=== PATIENT | female | born 1975 | race Caucasian/White ===

== ENCOUNTER → 2022-11-24 13:08 | Outpatient (CLI) | payer BC, SELFPAY ==
[2022-11-24 14:17] LABS: Basophils # 0.1 K/mm3 (0-0.2); Basophils % 1.4 % (0.1-2.0); Eosinophils # 0.6 K/mm3 (0.0-0.4); Eosinophils % 7.2 % (0.1-12.0); Hematocrit 47.4 % (37.0-47.0); Hemoglobin 15.6 g/dL (12.2-16.2); Lymphocytes # 2.7 K/mm3 (0.7-4.5); Lymphocytes % 33.3 % (10-50); Mean Corpuscular Hemoglobin 30.5 pg (27.0-31.2); Mean Corpuscular Volume 92.4 fl (81-99); Mean Platelet Volume 8.9 fl (7.4-10.4); Monocytes # 0.4 K/mm3 (0.1-1.0); Monocytes % 5.1 % (1.7-9.3); Neutrophils # 4.3 K/mm3 (1.8-7.8); Platelet Count 276 K/mm3 (142-424); Red Blood Count 5.13 M/mm3 (4.20-5.40); Red Cell Distribution Width 14.1 % (11.5-17.5); White Blood Count 8.1 K/mm3 (4.8-10.8)
[2022-11-24 14:34] LABS: Alanine Aminotransferase 17 U/L (12-78); Albumin Level 4.7 g/dl (3.5-5.0); Alkaline Phosphatase 78 U/L (38-126); Anion Gap 9.4 mEq/L (5-15); Aspartate Amino Transferase 21 U/L (14-36); Bilirubin,Indirect 0.3 mg/dL (0.0-0.9); Bilirubin,Total 0.3 mg/dl (0.2-1.3); Bilirubin,Unconjugated 0.4 mg/dL (0.0-1.1); Blood Urea Nitrogen 5 mg/dl (7-17); Calcium 9.8 mg/dl (8.4-10.2); Carbon Dioxide 29 mmol/L (22.0-30.0); Chloride 104 mmol/L (98-107); Chol/HDL Ratio 5.5 (1-3.5); Cholesterol 160 mg/dl (140-200); Estimated Glomerular Filt Rate 90 ml/min (>60); GFR (African American) 109 ML/MIN (>60); Glucose 93 mg/dl (74-100); HDL Cholesterol 29 mg/dl (40-60); Magnesium 2.2 mg/dl (1.6-2.3); Potassium 4.4 mmoL/L (3.5-5.1); Sodium 138 mmol/L (136-145); Total Protein,Serum 7.3 g/dl (6.3-8.2); Triglycerides 209 mg/dl (30-150); VLDL Cholesterol 42 mg/dL (0-40)
[2022-11-24 14:45] LABS: Direct LDL Cholesterol 95.45 mg/dL (100-129)
[2022-11-24 14:50] LABS: Free T4 (Free Thyroxine) 1.07 ng/dl (0.78-2.19)
[2022-11-24 15:05] LABS: Thyroid Stimulating Hormone 0.87 uIU/mL (0.465-4.68)
== END ==
LOC: LAB 13:10
PROVIDERS: PCP Family Medicine; Visit Provider Physician Assistant
DX: R00.0 Tachycardia, unspecified (principal); I10 Essential (primary) hypertension; R53.83 Other fatigue; R09.02 Hypoxemia; Z72.0 Tobacco use; Z80.1 Family history of malignant neoplasm of trachea, bronchus and lung
CPT/HCPCS: 36415; 80048; 80061; 80076; 83735; 84439; 84443; 85025; 93225; 93226

== ENCOUNTER → 2022-12-15 10:07 | Outpatient (CLI) | payer BC, SELFPAY ==
--- NOTE | 2022-12-15 10:07 | CT_ITS ---
FINAL REPORT TECHNIQUE: The patient was injected with IV contrast. Axial images were obtained through the chest in a PE protocol. 3-D reconstruction images were also performed. Individualized dose reduction techniques using automated exposure control or adjustment of the MA and/or KV according to patient's size were employed. CLINICAL HISTORY: Hypoxemia, Tachycardia, soa FINDINGS: Mediastinal vasculature is adequately opacified. No pulmonary artery filling defects are identified to suggest PE. There is no aortic dissection. There is no axillary adenopathy. There is no hilar or mediastinal adenopathy. The heart size is normal. There is no pericardial or pleural effusion. There is consolidation and atelectasis in the right mid lung. Lung windows demonstrate mild ground-glass opacity in the right lung base which is nonspecific and possibly related to infectious pneumonitis. Limited images of the upper abdomen are unremarkable. IMPRESSION: No pulmonary embolus or dissection. Right midlung consolidation. Ground-glass opacities in the right lung base concerning for infectious pneumonitis. Reviewed, Interpreted and Dictated by Crispin Patterson MD Transcribed by Alyssa Becerra Authenticated and [facility]
== END ==
LOC: RAD 10:07
PROVIDERS: PCP Family Medicine; Visit Provider Physician Assistant
DX: R09.02 Hypoxemia (principal); R00.0 Tachycardia, unspecified; I10 Essential (primary) hypertension; Z80.1 Family history of malignant neoplasm of trachea, bronchus and lung
CPT/HCPCS: 71275; Q9967

== ENCOUNTER 2023-03-02 08:14 | Day surgery (SDC) | payer BC, SELFPAY ==
--- NOTE | 2023-02-27 10:11 | SUR.PREOP ---
Upon making preop phone call notified patient of scheduled procedure time and being NPO after midnight. Patient states that she can not go that long without eating. Asked patient of she would like to speak with Dr. Dong's office about scheduled procedure time and she states that she would. Attempted to transfer pt to Dr. Dong's office, no answer. Notified patient that I would recall his office and ask them to reach out to her. Upon finally reaching office staff notified them that she would like to receive a phone call regarding scheduled time. Was notified per office staff they had left her a message earlier in the day informing her to call them if she had any questions.
[2023-02-27 13:43] VITALS: BMI 23.1
[2023-03-02] VITALS (9 sets, daily range): BP systolic 92–136; BP diastolic 55–86; PULSE 69–95; RESP 14–18; TEMP -9.4–36.6; O2SAT 92–100
[2023-03-02 08:54] LABS: Basophils # 0.1 K/mm3 (0-0.2); Basophils % 0.8 % (0.1-2.0); Eosinophils # 0.4 K/mm3 (0.0-0.4); Eosinophils % 4.4 % (0.1-12.0); Hematocrit 45.6 % (37.0-47.0); Hemoglobin 15.4 g/dL (12.2-16.2); Lymphocytes # 2.2 K/mm3 (0.7-4.5); Lymphocytes % 26.2 % (10-50); Mean Corpuscular HGB Conc 33.7 g/dL (31.8-35.4); Mean Corpuscular Hemoglobin 30.8 pg (27.0-31.2); Mean Corpuscular Volume 91.1 fl (81-99); Mean Platelet Volume 8.7 fl (7.4-10.4); Monocytes # 0.4 K/mm3 (0.1-1.0); Monocytes % 4.4 % (1.7-9.3); Neutrophils # 5.3 K/mm3 (1.8-7.8); Neutrophils % 64.2 % (37.0-80.0); Platelet Count 244 K/mm3 (142-424); Red Cell Distribution Width 13.7 % (11.5-17.5); White Blood Count 8.3 K/mm3 (4.8-10.8)
[2023-03-02 09:02] LABS: Blood Urea Nitrogen 11 mg/dl (7-17); Calcium 9.8 mg/dl (8.4-10.2); Carbon Dioxide 28 mmol/L (22.0-30.0); Chloride 107 mmol/L (98-107); Creatinine Clearance Estimated 112 mL/min (50-200); Estimated Glomerular Filt Rate 107 ml/min (>60); GFR (African American) 130 ML/MIN (>60); Glucose 90 mg/dl (74-100); Sodium 141 mmol/L (136-145)
--- NOTE | 2023-03-02 09:10 | P.PNANES_ITS ---
[facility] Disclaimer: The information contained in this section may have been updated after the patient was seen, as this information can be updated by other users. Medical History Allergic rhinitis Chest pain Dyspnea on exertion Fatigue FH: lung cancer HTN (hypertension) Hypoxemia Recurrent pneumonia Smoking greater than 30 pack years SOB (shortness of breath) on exertion Tachycardia Tobacco use Surgical History History of cholecystectomy History of hysterectomy Family History Other Family history of COPD (chronic obstructive pulmonary disease) Family history of cancer Family history of myocardial infarction Social History (Updated 03/02/23 @ 08:55 by Luisana Pena RN) Smoking Status: Current every day smoker tobacco type: cigarettes packs per day: 1 years smoked: 30 alcohol intake: never substance use type: denies use current occupational status: employed Travel in the last 8 weeks: None [facility] Anesthesia Checklist Patient Identification Patient Identification: Verbal (Name & ) Structural Data Admitted From: Home Planned Operative Procedure/s: bronchoscopy Consent for Planned Operative Procedure(s) Verified: Yes NPO Status Verified Time NPO: 00:00 Additional verifications Anesthesia Reactions: No Hx Blood Transfusions: No Blood Transfusion Reaction: No Airway Assessment C-Spine Mobility Assessed: Yes TMJ Mobility Assessed: Yes Dentition: Good Dentition Neurological Assessment Level of Consciousness: Awake, Alert and Appropriate Anesthesia Plan Anesthesia Risk discussed: Yes Anesthesia Plan: Verified ASA Class: II Anesthesia Type: General
--- NOTE | 2023-03-02 09:27 | XR_ITS ---
FINAL REPORT CLINICAL HISTORY: h/o pneumonia COMPARISON: 03/02/2023 FINDINGS: A portable view of the chest was obtained. Cardiac and mediastinal silhouettes are within normal limits. The lungs are clear. There is no pleural effusion or pneumothorax. IMPRESSION: No acute process on this portable exam. Reviewed, Interpreted and Dictated by Savannah Sheth MD Transcribed by Kaci Montilla Authenticated and [facility]
--- NOTE | 2023-03-02 10:31 | XR_ITS ---
FINAL REPORT CLINICAL HISTORY: TRANS-BRONCHOSCOPY WITH BIOPSY- right middle lobe. Fluoro time: 2:12 FINDINGS: FLUOROSCOPY LESS THAN 1 HOUR HISTORY: Fluoroscopy guided injection. FINDINGS: Fluoroscopic guidance was provided for bronchoscopy. A single spot film was obtained. 2 minutes 12 seconds of fluoroscopy time were used. IMPRESSION: As above. Reviewed, Interpreted and Dictated by Savannah Sheth MD Transcribed by Anna Gomez Authenticated and . [facility]
--- NOTE | 2023-03-02 10:43 | P.PNANES_ITS ---
[facility] Anesthesia Record Part I Anesthesia Record I Intake, IV Amount: 1,000 Estimated blood loss (mL): 2 Urine output (mL): 0 Blood Pressure: 92/55 SaO2: 93 Pulse Rate: 95 Respiratory Rate: 15 Temperature: 15 F Patient is:: Drowsy and Oral/Nasal airway Stable to PACU at:: 10:44
--- NOTE | 2023-03-02 10:58 | XR_ITS ---
FINAL REPORT CLINICAL HISTORY: post bronch COMPARISON: Earlier same day FINDINGS: A portable view of the chest was obtained. Cardiac and mediastinal silhouettes are within normal limits. There is a new right base opacity. There is a pneumothorax with 1.4 cm of pleural separation. Right pleural effusion is noted. IMPRESSION: Pneumothorax with 1.4 cm pleural separation post bronchoscopy. Right pleural effusion and right base opacity. Reviewed, Interpreted and Dictated by Savannah Sheth MD Transcribed by Anna Gomez Authenticated and [facility]
--- NOTE | 2023-03-02 11:06 | EXP.BRONCH.N ---
Procedure: Date: 03/02/23 Patient Date of :: 1975 Procedure Performed:: Bronchoscopy with airway examination, bronchoalveolar lavage and transbronchial lung biopsy Indications:: Right middle lobe collapse Performing Provider:: Nick Dong MD Referring Provider:: Fidel Chen MD Sedation:: General anesthesia Procedure:: Bronchoscopy airway examination, bronchoalveolar lavage and transbronchial lung biopsy: A clean THEREPEAUTIC bronchoscopy was advanced through the ET tube and airways were examined up to subsegmental bronchi. Airways appeared grossly normal, no evidence of mucoid secretions, mucous plugging active bleeding/old blood clots noted. No evidence of endobronchial lesion/mucous making noted in the right middle lobe bronchi. Bronchoalveolar lavage was performed in the RIGHT MIDDLE LOBE with instillation of 60 cc normal saline with return of 30 cc back. BAL fluid was sent for cell count and differential along with bacterial fungal and AFB stain and cultures. Transbronchial biopsy was performed in the RIGHT MIDDLE LOBE with a total of 7 biopsies performed, 5 biopsy specimens were sent in formalin for cytopathologic examination. The other 2 biopsy samples, were sent one each in two separate normal saline specimen cups for bacterial fungal and AFB stain cultures. Special request was also made for the pathologist to evaluate for AFB and fungal organisms on the cytopathologic examination. Patient tolerated the procedure with no immediate acute complications. We will follow the patient in pulmonary clinic in 7 to 10 days. Findings:: Please see the procedure note Recommendations:: Postoperative bronchoscopy instructions. Follow in pulmonary clinic in 5 to 7 days Complications:: No acute immediate complication Estimated blood obtained (mL): 10
--- NOTE | 2023-03-02 12:21 | SUR.PREOP ---
Recieved call from Radiology stating patient shows a pneumothorax on post bronchoscopy CXR. Spoke with postop staff who state that patient has been discharged following Dr. Dong's review of CXR and permission to discharge. Attempted to call Dr. Langley's office to notify him of radiology report, no answer. Called Perico Harper who states she will send a message to Divya in Dr Dong's office requesting he follow up with Radiology.
[2023-03-03 07:23] VITALS: BP 123/79; PULSE 91; TEMP 36.6
--- NOTE | 2023-03-03 07:23 | EXP.ANES.II ---
[facility] Anesthesia Record Part II Anesthesia Record Part II Discharge Time: 11:14 Destination: Surgical Day Care (OP Surgery) PACU nurse assessment reviewed?: Yes Patient Condition:: Good Anesthesia Complications:: None Swallowing reflex intact?: Yes Cyanosis?: No Blood Pressure: 123/79 Pulse Rate: 91 Temperature: 97.9 F Mental Status: Alert & Oriented Pain level:: 0 Nausea and/or vomitting:: None Intake, IV Amount: 0
== END 2023-03-02 11:55 | disposition home or self-care (01) ==
PROVIDERS: PCP Family Medicine; Visit Provider Internal Medicine Pulmonary Disease
PROC: (CPT 31624; principal; 2023-03-02 10:00)
DX: R06.09 Other forms of dyspnea (principal); Z79.899 Other long term (current) drug therapy; F17.210 Nicotine dependence, cigarettes, uncomplicated; J18.9 Pneumonia, unspecified organism; J30.9 Allergic rhinitis, unspecified; I10 Essential (primary) hypertension; J93.83 Other pneumothorax
CPT/HCPCS: 31624; 31628; 71045; 76000; 80048; 85025; 87070; 87077; 87102; 87116; 87186; 87205; 87206; 89051; J2405

== ENCOUNTER → 2023-03-03 07:50 | Outpatient (CLI) | payer BC, SELFPAY ==
--- NOTE | 2023-03-03 07:58 | XR_ITS ---
FINAL REPORT CLINICAL HISTORY: SOB, post bronchoscopy COMPARISON: 03/02/2023 FINDINGS: PA and lateral views of the chest are obtained. There is a prior from 03/02/2023 that was used for comparison. The cardiac and mediastinal silhouettes are within normal limits. There is no pleural effusion or acute osseous abnormality. There has been interval increase in size in the right pneumothorax. The pleural separation measures 4.7 cm. There is a right middle lobe collapse. The left lung is clear. IMPRESSION: Interval increase in size in the right pneumothorax. Right middle lung collapse. These findings were communicated to the patient's nurse Cely at 9:05 AM on 03/03/2023. Reviewed, Interpreted and Dictated by Savannah Sheth MD Transcribed by Jessie Thakkar Authenticated and [facility]
== END ==
LOC: RAD 07:53
PROVIDERS: PCP Family Medicine; Visit Provider Internal Medicine Pulmonary Disease
DX: R06.02 Shortness of breath (principal)
CPT/HCPCS: 71046

== ENCOUNTER 2023-03-03 08:57 | Inpatient (IN) | payer BC, SELFPAY ==
[2023-03-03] VITALS (17 sets, daily range): BP systolic 128–163; BP diastolic 80–106; PULSE 59–86; RESP 16–20; TEMP 36.6–36.9; O2SAT 97–100; BMI 22.4; BMI 23.6
--- NOTE | 2023-03-03 09:06 | PC.NURSE ---
0904 report received from [facility], CXR RESULTS GIVEN TO DR. KAUR AT THIS TIME
--- NOTE | 2023-03-03 09:09 | HMH.EDGENADL ---
Discharge Plan Disposition Patient Disposition: Admitted As Inpatient Clinical Impressions Clinical Impression: Pneumothorax Qualifiers: Pneumothorax type: other pneumothorax Qualified Code(s): J93.83 - Other pneumothorax Discharge ED Provider: Lona Spangler Adult HPI General Chief complaint: Shortness of Breath/Dyspnea Stated complaint: Phys ref, post op 03/02 upper RT collarbone pain Time Seen by Provider: 03/03/23 09:00 History of Present Illness HPI narrative: This 47-year-old female with a history of hypertension presents to the emergency department with concerns of right-sided chest pain, and pneumothorax from outside provider. Patient had lung biopsy performed with pulmonology yesterday. At that time she had small previously no pneumothorax. Patient was having worsening right-sided chest pain and presented for repeat chest x-ray ordered by pulmonology. The cash applications specialist called the ED stating the patient would be arriving for evaluation and pneumothorax treatment. Dr. Dong stated he thought the pneumothorax was approximately 4 cm now and with the patient having symptomatic right-sided chest pain he wanted further evaluation and treatment. He indicated he would have the patient admitted after treatment. Patient states she otherwise would not be in the ER if they had not identified this expanding pneumothorax. No other positive review of systems at this time. Specifically, she denies hemoptysis, productive cough, left-sided chest pain, or dyspnea. Related Data Home Medications Medication Instructions Recorded Confirmed cyanocobalamin (vitamin B-12) 1,000 mcg PO DAILY Supplement 11/24/22 03/03/23 1,000 mcg tablet,extended release ergocalciferol (vitamin D2) 1,250 1,250 mcg PO WEEKLY Supplement 11/24/22 03/03/23 mcg (50,000 unit) capsule black cohosh root extract 40 mg 40 mg PO DAILY Supplement 02/04/23 03/03/23 capsule collagen,hydrolysate 500 mg-biotin 1 cap PO DAILY Supplement 02/04/23 03/03/23 800 mcg-ascorbic acid 50 mg capsule (Collagen 1500 Plus C) docusate sodium 100 mg capsule 100 mg PO BID Constipation 02/04/23 03/03/23 diltiazem HCl 180 mg 180 mg PO BID Blood Pressure 02/27/23 03/03/23 capsule,extended release 24 hr hydrochlorothiazide 12.5 mg tablet 12.5 mg PO DAILY Blood Pressure 02/27/23 03/03/23 budesonide-formoterol HFA 160 1 puff inhalation QID PRN Asthma 03/03/23 03/03/23 mcg-4.5 mcg/actuation aerosol inhaler (Symbicort) naproxen 500 mg tablet 1 mg PO BID Pain 03/03/23 03/03/23 Previous Rx's Medication Instructions Recorded benzonatate 200 mg capsule 200 mg PO TID PRN cough #30 caps 03/02/23 Allergies Allergy/AdvReac Type Severity Reaction Status Date / Time Penicillins AdvReac itching Verified 03/02/23 08:38 Sulfa (Sulfonamide AdvReac Verified 03/02/23 08:38 Antibiotics) sulfamethoxazole AdvReac swelling/it Verified 03/02/23 08:38 [From Bactrim] isaac trimethoprim [From Bactrim] AdvReac swelling/it Verified 03/02/23 08:38 isaac steroids AdvReac Uncoded 02/27/23 13:48 PFSH PFSH Disclaimer: The information contained in this section may have been updated after the patient was seen, as this information can be updated by other users. Medical History Allergic rhinitis Chest pain Dyspnea on exertion Fatigue FH: lung cancer HTN (hypertension) Hypoxemia Recurrent pneumonia Smoking greater than 30 pack years SOB (shortness of breath) on exertion Tachycardia Tobacco use Surgical History History of cholecystectomy History of hysterectomy Family History Other Family history of COPD (chronic obstructive pulmonary disease) Family history of cancer Family history of myocardial infarction Social History (Updated 03/02/23 @ 09:11 by Tio Rios CRNA) Smoking Status: Current every day smoker tobacco type: cigarettes
--- NOTE | 2023-03-03 09:10 | PC.NURSE ---
pt placed on 2 L NC for comfort,
--- NOTE | 2023-03-03 09:39 | PC.NURSE ---
KAM FELIPE at for procedure with assistance from Cely Uribe RN and Ana Souza RN
--- NOTE | 2023-03-03 09:40 | PC.NURSE ---
0940:Time Out: @ BS. 2L NC placed on patient. V/S: BP: 150/96 HR:84 O2:98% 2L RR:17 pre procedure. 0943: prepped patient 0950: inserted Lido to site 0953: Procedure start time 0959: sutured in place 14Fr pigtail 1005: Chest tube placed on continuous low wall suction 1006: XR @ BS to verify tube placement
--- NOTE | 2023-03-03 10:00 | PC.NURSE ---
called x-ray for post chest tube insertion
--- NOTE | 2023-03-03 10:14 | XR_ITS ---
FINAL REPORT CLINICAL HISTORY: chest tube placement COMPARISON: 2 hours prior FINDINGS: A portable view of the chest was obtained. There there has been interval placement of a right chest tube. Cardiac and mediastinal silhouettes are within normal limits. The lungs are clear. There is significant decrease in the previously seen right pneumothorax. There continues to be right middle lobe opacity. There is new left basilar atelectasis. IMPRESSION: Right chest tube in place with significant decrease in right pneumothorax. Reviewed, Interpreted and Dictated by Savannah Sheth MD Transcribed by Allan Leal Authenticated and [facility]
--- NOTE | 2023-03-03 10:20 | PC.NURSE ---
PT PROVIDED PILLOWS FOR COMFORT, AT BEDSIDE. CALL LIGHT WITHIN REACH
[2023-03-03 10:24] LABS: Coronavirus 19, PCR Not Detected (NotDetected); Influenza A, PCR Not Detected (NotDetected); Influenza B, PCR Not Detected (NotDetected)
--- NOTE | 2023-03-03 10:46 | PC.NURSE ---
ROUNDED ON PT, REPORTS DISCOMFORT AT CHEST TUBE SITE, NO LEAKING AT SITE, NO BLEEDING OR CREPITUS. PT WITHOUT DIFFICULTY BREATHING. REPORTS PAIN FROM CHEST TUBE INSERTION. MADE AWARE
--- NOTE | 2023-03-03 10:48 | PC.NURSE ---
called Dr Dong to have him call the ER to speak with ER Doctor
--- NOTE | 2023-03-03 10:52 | PC.NURSE ---
DR KAUR SPEAKING WITH DR HENRIQUEZ
--- NOTE | 2023-03-03 10:53 | PC.NURSE ---
Dr Dong called to speak with ER Doctor
--- NOTE | 2023-03-03 10:56 | PC.NURSE ---
Case management has been called for admission
--- NOTE | 2023-03-03 11:10 | PC.NURSE ---
Patient and family have questions in regards to chest tube. MD notified at this time
--- NOTE | 2023-03-03 11:20 | PC.NURSE ---
Called report to Zaida LÓPEZ second floor
--- NOTE | 2023-03-03 11:39 | HMH.PHAINT1 ---
Pharmacy Intervention Comments: Patient's home medications reviewed and verified with external pharmacy. -Arnel Khan, Pharm Student
--- NOTE | 2023-03-03 11:41 | PC.NURSE ---
Rounded on patient, family at BS. Call armando within reach. No other needs at this time
--- NOTE | 2023-03-03 12:11 | EXP.PULM.CON ---
History of Present Illness History of present illness: Ms. Smith is a 47-year-old female had a bronchoscopy transbronchial biopsy on to have less than 2 cm pleura seperation managed conservatively with observation with repeat chest x-ray noted to have worsening pneumothorax and was eventually admitted to the hospital for further management. [facility] Disclaimer: The information contained in this section may have been updated after the patient was seen, as this information can be updated by other users. Medical History Allergic rhinitis Chest pain Dyspnea on exertion Fatigue FH: lung cancer HTN (hypertension) Hypoxemia Recurrent pneumonia Smoking greater than 30 pack years SOB (shortness of breath) on exertion Tachycardia Tobacco use Surgical History History of cholecystectomy History of hysterectomy Family History Other Family history of COPD (chronic obstructive pulmonary disease) Family history of cancer Family history of myocardial infarction Social History (Updated 03/02/23 @ 09:11 by Tio Rios CRNA) Smoking Status: Current every day smoker tobacco type: cigarettes packs per day: 1 years smoked: 30 alcohol intake: never substance use type: denies use current occupational status: employed Travel in the last 8 weeks: None Review of Systems Constitutional Constitutional: Reports fatigue and Denies headache(s) Eyes Eyes: Denies itchy eyes and Denies loss of vision ENT Ears, Nose, Mouth, and Throat: Denies headache(s), Denies lip swelling and Denies throat swelling *Cardiovascular Cardiovascular: Reports dyspnea on exertion *Respiratory Respiratory: Denies chest congestion, Denies cough, Reports dyspnea on exertion, Denies excessive phlegm production, Reports pain on inspiration, Reports pain with cough and Denies wheezing *Gastrointestinal Gastrointestinal: Denies abdominal pain, Denies belching and Denies cramping *Musculoskeletal Musculoskeletal: Reports back pain, Reports myalgias and Reports other (No small joint swelling or Pain) *Neurologic Neurologic: Denies headache(s) and Denies loss of vision Psychiatric Psychiatric: Denies homicidal ideation and Denies suicidal ideation Endocrine Endocrine: Reports fatigue and Denies heat intolerance Hematologic/Lymphatic Hematologic/Lymphatic: Denies easy bleeding and Denies lymphadenopathy Allergic/Immunologic Allergic/Immunologic: Denies itchy eyes, Denies lip swelling, Denies throat swelling and Denies wheezing Pulmonology Exam Inpatient Vital signs and Labs for Last 24 Hours: Temp Pulse Resp BP Pulse Ox O2 Del Method O2 Flow Rate 97.9 F 64 18 156/101 H 100 Nasal Cannula 2 03/03/23 12:00 03/03/23 12:00 03/03/23 12:00 03/03/23 12:00 03/03/23 12:00 03/03/23 11:41 03/03/23 11:41 Laboratory Results - last 24 hr 03/03/23 10:16: SARS-CoV-2 (PCR) Not detected, Influenza A Untype (PCR) Not detected, Influenza Type B (PCR) Not detected I & O for Labs for Last 24 Hours: Intake & Output 02/28/23 03/01/23 03/02/23 03/03/23 23:59 23:59 23:59 23:59 Output Total 0 / 0 Balance 0 / 0 Weight 137 lb 6 oz Constitutional: Present mild distress Head: Present normocephalic and atraumatic ENT: Present normal exam, normal oropharynx and mucous membranes moist Neck: Present normal inspection and full ROM Respiratory: Present able to speak in complete sentences; Absent prolonged expiratory phase, respiratory distress, wheezes, crackles or diminished air movement Cardiac: Present S1/S2, Tachycardia and radial pulses present GI: Present soft and distention; Absent tenderness or guarding Rectal (female): Present deferred (female): Present deferred Skin: Present intact; Absent cyanosis or jaundice Neuro: Present alert, awake and oriented x 3 Extremities: Present normal inspection; Absent clubbing or cyanosis Psychiatric
--- NOTE | 2023-03-03 12:40 | PC.NURSE ---
Dr. Langley at bedside.
--- NOTE | 2023-03-03 15:29 | PC.NURSE ---
New orders given for pain control per Dr. Vang. Patient reports pain at a 4 on a 10 scale.
--- NOTE | 2023-03-03 17:02 | EXP.HP ---
History of Present Illness *Admission Date: 03/03/23 *Reason for visit:: pneumothorax *History of present illness: Ms. Smith is a 47 year old female with a past medical history of cigarette nicotine dependence and hypertension. She was instructed to come to the ER today because CXR revealed worsening R sided pneumothorax. She had bronchoscopy and transbronchial biopsy of the RML yesterday to work up collapse of right middle lobe. needle core biopsies revealed benign alveolated lung parenchyma with no abnormalities and bronchial lavage of the right middle lobe was negative for malignant cells. Currently she has pain from the chest tube but the pain is in control with medications. She denies dyspnea, cough and fevers. [facility] Disclaimer: The information contained in this section may have been updated after the patient was seen, as this information can be updated by other users. Medical History Allergic rhinitis Chest pain Dyspnea on exertion Fatigue FH: lung cancer HTN (hypertension) Hypoxemia Recurrent pneumonia Smoking greater than 30 pack years SOB (shortness of breath) on exertion Tachycardia Tobacco use Surgical History History of cholecystectomy History of hysterectomy Family History Other Family history of COPD (chronic obstructive pulmonary disease) Family history of cancer Family history of myocardial infarction Social History (Updated 03/02/23 @ 09:11 by Tio Rios CRNA) Smoking Status: Current every day smoker tobacco type: cigarettes packs per day: 1 years smoked: 30 alcohol intake: never substance use type: denies use current occupational status: employed Travel in the last 8 weeks: None Review of Systems Review of Systems Review of systems:: pertinent systems reviewed and negative unless documented below Constitutional Constitutional: Denies headache(s) Eyes Eyes: Denies loss of vision ENT Ears, Nose, Mouth, and Throat: Denies headache(s) *Cardiovascular Cardiovascular: Reports dyspnea on exertion *Respiratory Respiratory: Denies cough and Reports dyspnea on exertion *Neurologic Neurologic: Denies headache(s) and Denies loss of vision Meds Home Medications and Allergies Home Medications Medication Instructions Recorded Confirmed Type cyanocobalamin (vitamin B-12) 1,000 mcg PO DAILY Supplement 11/24/22 03/03/23 History 1,000 mcg tablet,extended release ergocalciferol (vitamin D2) 1,250 1,250 mcg PO WEEKLY Supplement 11/24/22 03/03/23 History mcg (50,000 unit) capsule black cohosh root extract 40 mg 40 mg PO DAILY Supplement 02/04/23 03/03/23 History capsule collagen,hydrolysate 500 mg-biotin 1 cap PO DAILY Supplement 02/04/23 03/03/23 History 800 mcg-ascorbic acid 50 mg capsule (Collagen 1500 Plus C) docusate sodium 100 mg capsule 100 mg PO BID Constipation 02/04/23 03/03/23 History diltiazem HCl 180 mg 180 mg PO BID Blood Pressure 02/27/23 03/03/23 History capsule,extended release 24 hr hydrochlorothiazide 12.5 mg tablet 12.5 mg PO DAILY Blood Pressure 02/27/23 03/03/23 History benzonatate 200 mg capsule 200 mg PO TID PRN cough #30 caps 03/02/23 03/03/23 Rx budesonide-formoterol HFA 160 1 puff inhalation QID PRN Asthma 03/03/23 03/03/23 History mcg-4.5 mcg/actuation aerosol inhaler (Symbicort) naproxen 500 mg tablet 1 mg PO BID Pain 03/03/23 03/03/23 History New Prescriptions to Start Prescriptions: Allergies Allergy/AdvReac Type Severity Reaction Status Date / Time Penicillins AdvReac itching Verified 03/02/23 08:38 Sulfa (Sulfonamide AdvReac Verified 03/02/23 08:38 Antibiotics) sulfamethoxazole AdvReac swelling/it Verified 03/02/23 08:38 [From Bactrim] isaac trimethoprim [From Bactrim] AdvReac swelling/it Verified 03/02/23 08:38 isaac steroids AdvReac Uncoded 02/27/23 13:48 Exam Data for L
--- NOTE | 2023-03-04 01:00 | PC.NURSE ---
Report from Awilda Metcalf RN
[2023-03-04 04:00] VITALS: BP 103/67; PULSE 64; RESP 20; TEMP 36.6; O2SAT 96; BMI 25.0
--- NOTE | 2023-03-04 06:00 | XR_ITS ---
PROCEDURE INFORMATION: Exam: XR Chest Exam date and time: 03/04/2023 5:20 AM Age: 47 years old Clinical indication: Condition or disease; Lung condition and disease; Pneumothorax; Patient HX: Right side pneumo, chest tube TECHNIQUE: Imaging protocol: Radiologic exam of the chest. Views: 1 view. COMPARISON: CR XR CHEST PORTABLE 03/03/2023 9:59 AM FINDINGS: Tubes, catheters and devices: Right-sided pleural tube. Lungs: Unremarkable. No consolidation. Pleural spaces: Trace right apical pneumothorax noted. Heart/Mediastinum: Unremarkable. No cardiomegaly. Bones/joints: Unremarkable. IMPRESSION: Right-sided pleural tube. Trace right apical pneumothorax demonstrated.
[2023-03-04 06:03] VITALS: O2SAT 93
--- NOTE | 2023-03-04 06:07 | PC.NURSE ---
Patient rested throughout the whole night. I took over care as primary RN and assessed chest tube which remains in place and patent. NAD otherwise. VSS.
[2023-03-04 06:49] LABS: Basophils # 0.1 K/mm3 (0-0.2); Eosinophils # 0.2 K/mm3 (0.0-0.4); Eosinophils % 1.9 % (0.1-12.0); Hematocrit 41.2 % (37.0-47.0); Hemoglobin 13.3 g/dL (12.2-16.2); Lymphocytes # 3.2 K/mm3 (0.7-4.5); Lymphocytes % 33.2 % (10-50); Mean Corpuscular HGB Conc 32.3 g/dL (31.8-35.4); Mean Corpuscular Hemoglobin 30.7 pg (27.0-31.2); Mean Platelet Volume 8.8 fl (7.4-10.4); Monocytes # 0.4 K/mm3 (0.1-1.0); Monocytes % 4.5 % (1.7-9.3); Neutrophils # 5.7 K/mm3 (1.8-7.8); Neutrophils % 59.3 % (37.0-80.0); Platelet Count 227 K/mm3 (142-424); Red Blood Count 4.33 M/mm3 (4.20-5.40); Red Cell Distribution Width 13.8 % (11.5-17.5); White Blood Count 9.6 K/mm3 (4.8-10.8)
[2023-03-04 06:58] LABS: Anion Gap 7.1 mEq/L (5-15); Blood Urea Nitrogen 10 mg/dl (7-17); Calcium 9.3 mg/dl (8.4-10.2); Carbon Dioxide 32 mmol/L (22.0-30.0); Chloride 107 mmol/L (98-107); Creatinine Clearance Estimated 91 mL/min (50-200); Estimated Glomerular Filt Rate 77 ml/min (>60); GFR (African American) 93 ML/MIN (>60); Glucose 89 mg/dl (74-100); Potassium 4.1 mmoL/L (3.5-5.1); Sodium 142 mmol/L (136-145)
[2023-03-04 07:44] VITALS: BP 136/81; PULSE 74; RESP 18; TEMP 36.6; O2SAT 95
--- NOTE | 2023-03-04 08:39 | EXP.PULM.PN ---
Subjective *Date: 03/04/23 *Time: 09:04 Interval history: No acute respiratory vents overnight. Patient denies any new respiratory complaints. Pulmonology Exam Inpatient Vital signs and Labs for Last 24 Hours: Temp Pulse Resp BP Pulse Ox O2 Del Method O2 Flow Rate 97.8 F 74 18 136/81 95 Nasal Cannula 1 03/04/23 07:44 03/04/23 07:44 03/04/23 07:44 03/04/23 07:44 03/04/23 07:44 03/04/23 07:44 03/04/23 07:44 Laboratory Results - last 24 hr 03/03/23 10:16: SARS-CoV-2 (PCR) Not detected, Influenza A Untype (PCR) Not detected, Influenza Type B (PCR) Not detected 03/04/23 06:13: WBC 9.6, RBC 4.33, Hgb 13.3, Hct 41.2, MCV 95.0, MCH 30.7, MCHC 32.3, RDW 13.8, Plt Count 227, MPV 8.8, Neut % (Auto) 59.3, Lymph % (Auto) 33.2, [place] % (Auto) 4.5, Eos % (Auto) 1.9, Baso % (Auto) 1.0, Neut # (Auto) 5.7, Lymph # (Auto) 3.2, [place] # (Auto) 0.4, Eos # (Auto) 0.2, Baso # (Auto) 0.1, Sodium 142, Potassium 4.1, Chloride 107, Carbon Dioxide 32 H, Anion Gap 7.1, BUN 10, Creatinine 0.80 D, Estimated Creat Clear 91, Estimated GFR 77, Est GFR ( Amer) 93 D, Glucose 89, Calcium 9.3 I & O for Labs for Last 24 Hours: Intake & Output 03/01/23 03/02/23 03/03/23 03/04/23 23:59 23:59 23:59 23:59 Intake Total 1080 / 1080 240 / 240 Output Total 0 / 0 Balance 1080 / 1080 240 / 240 Weight 137 lb 6 oz 146 lb 11.2 oz Constitutional: Present mild distress Head: Present normocephalic and atraumatic ENT: Present normal exam, normal oropharynx and mucous membranes moist Neck: Present normal inspection and full ROM Respiratory: Present able to speak in complete sentences; Absent prolonged expiratory phase, respiratory distress, wheezes, crackles or diminished air movement Cardiac: Present S1/S2, Tachycardia and radial pulses present GI: Present soft and distention; Absent tenderness or guarding Rectal (female): Present deferred (female): Present deferred Skin: Present intact; Absent cyanosis or jaundice Neuro: Present alert, awake and oriented x 3 Extremities: Present normal inspection; Absent clubbing or cyanosis Psychiatric: Present normal affect and cooperative Assessment and Plan *Assessment and plan (1) Pneumothorax: Status: Acute Qualifiers: Pneumothorax type: other pneumothorax Qualified Code(s): J93.83 - Other pneumothorax Category: Medical Code(s): J93.9 - Pneumothorax, unspecified (2) SOB (shortness of breath) on exertion: Status: Acute Category: Medical Code(s): R06.02 - Shortness of breath (3) Chest pain: Status: Acute Qualifiers: Chest pain type: pleurodynia Qualified Code(s): R07.81 - Pleurodynia Category: Medical Code(s): R07.9 - Chest pain, unspecified Plan Ms. Smith is a 47-year-old female had a bronchoscopy transbronchial biopsy on to have less than 2 cm pleura seperation managed conservatively with observation with repeat chest x-ray noted to have worsening pneumothorax and was eventually admitted to the hospital for further management. Status post 14 Yoruba chest tube placement significantly improved noted pneumothorax. Patient admits significant improvement in pain and shortness of breath post chest tube placement. Repeat CXR rom this morning Significant improvement with only trace pneumothorax Plan: -Nasal cannula oxygen supplementation to maintain O2 saturation goal of 100% -Clamp chest tube repeat CXR in 6 hrs -Advair 250 INH twice daily -Continue DuoNebs every 6 hours on as-needed basis Thank you for involving pulmonary in this patient care. We will continue to follow
[2023-03-04 11:01] VITALS: BP 150/78; PULSE 66; RESP 18; TEMP 36.6; O2SAT 95
--- NOTE | 2023-03-04 11:02 | PC.NURSE ---
courtesy karena frazier: family is at BS and has the call armando. no requests voiced at this time.
--- NOTE | 2023-03-04 12:57 | PC.NURSE ---
rounded on pt, sititng up in bed eating lunch, o2 off. pt stated she took o2 off to eat. o2 sat stable at 94% RA. pt put o2 back on after eating.
--- NOTE | 2023-03-04 13:00 | XR_ITS ---
FINAL REPORT CLINICAL HISTORY: Pneumothorax COMPARISON: 03/04/2013 FINDINGS: A single PA view of the chest was obtained. The cardiac and mediastinal silhouettes are within normal limits. There is no change in the right chest tube. There is slight increase in the bibasilar opacities. Right pneumothorax has increased in size, now with 1.9 cm of pleural separation. IMPRESSION: Interval increase in the pneumothorax since earlier today. Increase in the bibasilar opacities. Reviewed, Interpreted and Dictated by Savannah Sheth MD Transcribed by Kalie Murillo Authenticated and [facility]
--- NOTE | 2023-03-04 15:28 | XR_ITS ---
PROCEDURE INFORMATION: Exam: XR Chest Exam date and time: 03/04/2023 3:52 PM Age: 47 years old Clinical indication: Device placement; Other: Chest tube removed. ; Additional info: Tube removal TECHNIQUE: Imaging protocol: Radiologic exam of the chest. Views: 1 view. COMPARISON: CR XR CHEST PORTABLE 03/04/2023 1:17 PM FINDINGS: Tubes, catheters and devices: Right thoracostomy tube has been removed Lungs: Hazy airspace opacity in the right middle lobe is re-identified. Pleural spaces: No detectable right pneumothorax. Heart/Mediastinum: Unremarkable. No cardiomegaly. Bones/joints: Unremarkable. IMPRESSION: No detectable right pneumothorax.
--- NOTE | 2023-03-04 15:53 | PC.NURSE ---
courtesy tech note: pt is sitting up in bed with family at BS.
--- NOTE | 2023-03-04 16:49 | EXP.DC.SUM ---
General Admission date:: 03/03/23 Discharge date: 03/04/23 HPI HPI HPI: Ms. Smith is a 47 year old female with a past medical history of cigarette nicotine dependence and hypertension. She was instructed to come to the ER today because CXR revealed worsening R sided pneumothorax. She had bronchoscopy and transbronchial biopsy of the RML yesterday to work up collapse of right middle lobe. needle core biopsies revealed benign alveolated lung parenchyma with no abnormalities and bronchial lavage of the right middle lobe was negative for malignant cells. Currently she has pain from the chest tube but the pain is in control with medications. She denies dyspnea, cough and fevers. Hospital Course Hospital Course Hospital Course: #R sided acute pneumothorax #Collapse of right middle lobe status post 14 ukrainian chest tube placement significantly improved pneumothorax. The following morning the chest tube was removed and after chest tube was removed another cxr was obtained which did not reveal any pneumothorax. She will follow up with Dr. Dong Exam Data for Last 24 hours Vital signs and Labs for Last 24 Hours: Temp Pulse Resp BP Pulse Ox O2 Del Method O2 Flow Rate 97.9 F 66 18 150/78 H 95 Nasal Cannula 4 03/04/23 11:01 03/04/23 11:01 03/04/23 11:01 03/04/23 11:01 03/04/23 11:01 03/04/23 16:00 03/04/23 16:00 Laboratory Results - last 24 hr 03/04/23 06:13: WBC 9.6, RBC 4.33, Hgb 13.3, Hct 41.2, MCV 95.0, MCH 30.7, MCHC 32.3, RDW 13.8, Plt Count 227, MPV 8.8, Neut % (Auto) 59.3, Lymph % (Auto) 33.2, [place] % (Auto) 4.5, Eos % (Auto) 1.9, Baso % (Auto) 1.0, Neut # (Auto) 5.7, Lymph # (Auto) 3.2, [place] # (Auto) 0.4, Eos # (Auto) 0.2, Baso # (Auto) 0.1, Sodium 142, Potassium 4.1, Chloride 107, Carbon Dioxide 32 H, Anion Gap 7.1, BUN 10, Creatinine 0.80 D, Estimated Creat Clear 91, Estimated GFR 77, Est GFR ( Amer) 93 D, Glucose 89, Calcium 9.3 I & O for Last 24 hours: Intake & Output 03/01/23 03/02/23 03/03/23 03/04/23 23:59 23:59 23:59 23:59 Intake Total 1080 / 1080 480 / 480 Output Total 0 / 0 0 / 0 Balance 1080 / 1080 480 / 480 Weight 62.312 kg 66.542 kg Constitutional Constitutional: no acute distress *Routine HEENT Exam Head: Present normocephalic Eye: Present EOMI and PERRL ENT: Present mucous membranes moist *Routine Neck Exam Neck: Present supple; Absent lymphadenopathy Routine Chest/Breast/Axilla Exam Comments: dressing R chest mid axillary line dressing c/d/i *Routine Respiratory Exam Respiratory: Present CTA bilaterally *Routine Cardiovascular Exam Cardiovascular: Present RRR *Routine Abdominal Exam Abdominal: Present soft and normoactive bowel sounds; Absent tenderness *Routine Extremities Exam Extremities: Absent cyanosis, clubbing or edema *Routine Skin Exam Skin: Present warm; Absent rash *Routine Neurological Exam Neurological: Present alert and oriented X3 Results Data Completed and Pending Labs on day of discharge: Labs from last 24 hours 03/04/23 06:13 WBC 9.6 RBC 4.33 Hgb 13.3 Hct 41.2 MCV 95.0 MCH 30.7 MCHC 32.3 RDW 13.8 Plt Count 227 MPV 8.8 Neut % (Auto) 59.3 Lymph % (Auto) 33.2 [place] % (Auto) 4.5 Eos % (Auto) 1.9 Baso % (Auto) 1.0 Neut # (Auto) 5.7 Lymph # (Auto) 3.2 [place] # (Auto) 0.4 Eos # (Auto) 0.2 Baso # (Auto) 0.1 Sodium 142 Potassium 4.1 Chloride 107 Carbon Dioxide 32 H Anion Gap 7.1 BUN 10 Creatinine 0.80 D Estimated Creat Clear 91 Estimated GFR 77 Est GFR ( Amer) 93 D Glucose 89 Calcium 9.3 DS: Diagnosis Discharge Diagnosis (1) Pneumothorax: Status: Acute Code(s): J93.9 - Pneumothorax, unspecified Qualifiers: Pneumothorax type: other pneumothorax Qualified Code(s): J93.83 - Other pneumothorax (2) SOB (shortness of breath) on exertion: Status: Acute Code(s): R06.02 - Shortness of breath (3) Chest pain: Status: Acute
--- NOTE | 2023-03-05 14:17 | CARE MANAGER ---
Called and spoke with patient regarding recent discharge. Patient stated that she is doing well, just tired. She had no complaints or concerns at time of call.
== END 2023-03-04 17:27 | disposition home or self-care (01) | DRG 201 ==
LOC: ER 09:09 → 2ND 11:15
PROVIDERS: Admitting Provider Internal Medicine; Emergency Provider Emergency Medicine; PCP Family Medicine; Visit Provider Internal Medicine
DX: J93.83 Other pneumothorax (principal); F17.210 Nicotine dependence, cigarettes, uncomplicated; I10 Essential (primary) hypertension
CPT/HCPCS: 32556; 36415; 71045; 80048; 85025; 87636; 94640; 99291; J2405

== ENCOUNTER 2023-03-06 10:42 | Inpatient (IN) | payer BC, SELFPAY ==
--- NOTE | 2023-03-06 09:02 | XR_ITS ---
FINAL REPORT CLINICAL HISTORY: SOB COMPARISON: 03/04/2023 FINDINGS: PA and lateral views of the chest were obtained. The right pneumothorax noted on the prior chest x-ray of 719 has increased in size with 3 cm of pleural separation present on today's exam. The right middle lobe opacification persists. The cardiac and mediastinal silhouettes are within normal limits. No acute osseous abnormality is identified. IMPRESSION: Increased size of pneumothorax on the right side since 03/04. There is currently 3 cm of pleural separation. These results were called to [facility], pulmonary, and spoke with Divya Morelos at 9:45 AM 03/06/2023. Right middle lobe opacification persists. Reviewed, Interpreted and Dictated by Savannah Sheth MD Transcribed by Sherita Inman Authenticated and [facility]
--- NOTE | 2023-03-06 10:57 | HMH.PHAINT1 ---
Pharmacy Intervention Comments: Patient's home medications were verified using a discharge packet from 03/04/23, 2 days ago. -Jarrod Sheth, PharmD student
--- NOTE | 2023-03-06 11:10 | CT_ITS ---
FINAL REPORT TECHNIQUE: Thin section axial images were obtained from the lung apices through the upper abdomen without contrast. This study was performed with techniques to keep radiation doses as low as reasonably achievable (ALARA). Individualized dose reduction techniques using automated exposure control or adjustment of mA and/or kV according to the patient's size were employed. CLINICAL HISTORY: Lung collapse/Endobronchial lesion FINDINGS: There are mildly prominent right axillary lymph nodes. There is no evidence of mediastinal or hilar adenopathy. There is a small right effusion. There is moderate right pneumothorax. There is complete collapse of the right middle lobe. There is partial obstruction of the right middle lobe bronchus. Bilateral lower lobe atelectasis is identified. Limited, unenhanced evaluation of the upper abdomen is without acute abnormality. There is no acute osseous abnormality. IMPRESSION: Moderate right pneumothorax. Collapse of the right middle lobe with partial obstruction of the right middle lobe bronchus. Reviewed, Interpreted and Dictated by Savannah Sheth MD Transcribed by Kalie Murillo Authenticated and [facility]
--- NOTE | 2023-03-06 11:25 | PC.NURSE ---
arrived to floor by w/c from ct
[2023-03-06 12:00] VITALS: BP 141/81; PULSE 64; RESP 16; TEMP 36.8; O2SAT 100; BMI 23.7
[2023-03-06 12:37] VITALS: O2SAT 95
--- NOTE | 2023-03-06 13:01 | EXP.HP ---
History of Present Illness *Admission Date: 03/06/23 *Reason for visit:: R sided pneumothorax *History of present illness: Ms. Smith is a 47 year old female with a past medical history of cigarette nicotine dependence and hypertension. She was recently had bronchoscopy and transbronchial biopsy of the RML on 03/02 to work up collapse of right middle lobe. needle core biopsies revealed benign alveolated lung parenchyma with no abnormalities and bronchial lavage of the right middle lobe was negative for malignant cells. Subsequently she developed a R sided pneumothorax which improved after a 14 Syrian chest tube was placed; the chest tube was removed and she was discharged home. This morning she felt R sided chest discomfort; she was scheduled to have CXR in clinic today to follow up on her pneumothorax and CXR revealed revealed recurrent R sided pneumothorax. [facility] Disclaimer: The information contained in this section may have been updated after the patient was seen, as this information can be updated by other users. Medical History Allergic rhinitis Chest pain Dyspnea on exertion Fatigue FH: lung cancer HTN (hypertension) Hypoxemia Lung collapse Recurrent pneumonia Recurrent pneumothorax Smoking greater than 30 pack years SOB (shortness of breath) on exertion Tachycardia Tobacco use Surgical History History of cholecystectomy History of hysterectomy Family History Other Family history of COPD (chronic obstructive pulmonary disease) Family history of cancer Family history of myocardial infarction Social History (Updated 03/06/23 @ 12:08 by Lady Mitchell RN) Smoking Status: Former smoker years smoked: 30 smoking status stop date: 03/02/2023 alcohol intake: never substance use type: denies use current occupational status: employed Travel in the last 8 weeks: None Review of Systems Review of Systems Review of systems:: pertinent systems reviewed and negative unless documented below *Cardiovascular Cardiovascular: Reports chest pain and Reports dyspnea *Respiratory Respiratory: Reports dyspnea Meds Home Medications and Allergies Home Medications Medication Instructions Recorded Confirmed Type cyanocobalamin (vitamin B-12) 1,000 mcg PO DAILY Supplement 11/24/22 03/06/23 History 1,000 mcg tablet,extended release ergocalciferol (vitamin D2) 1,250 1,250 mcg PO WEEKLY Supplement 11/24/22 03/06/23 History mcg (50,000 unit) capsule black cohosh root extract 40 mg 40 mg PO DAILY Supplement 02/04/23 03/06/23 History capsule collagen,hydrolysate 500 mg-biotin 1 cap PO DAILY Supplement 02/04/23 03/06/23 History 800 mcg-ascorbic acid 50 mg capsule (Collagen 1500 Plus C) docusate sodium 100 mg capsule 100 mg PO BID Constipation 02/04/23 03/06/23 History diltiazem HCl 180 mg 180 mg PO BID Blood Pressure 02/27/23 03/06/23 History capsule,extended release 24 hr hydrochlorothiazide 12.5 mg tablet 12.5 mg PO DAILY Blood Pressure 02/27/23 03/06/23 History benzonatate 200 mg capsule 200 mg PO TID PRN cough #30 caps 03/02/23 03/06/23 Rx naproxen 500 mg tablet 1 mg PO BID Pain 03/03/23 03/06/23 History New Prescriptions to Start Prescriptions: Allergies Allergy/AdvReac Type Severity Reaction Status Date / Time Penicillins AdvReac itching Verified 03/06/23 09:44 Sulfa (Sulfonamide AdvReac Verified 03/06/23 09:44 Antibiotics) sulfamethoxazole AdvReac swelling/it Verified 03/06/23 09:44 [From Bactrim] isaac trimethoprim [From Bactrim] AdvReac swelling/it Verified 03/06/23 09:44 isaac steroids AdvReac Uncoded 03/06/23 09:44 Exam Data for Last 24 hours Vital signs and Labs for Last 24 Hours: Temp Pulse Resp BP Pulse Ox O2 Del Method O2 Flow Rate 98.3 F 64 16 141/81 H 95 Non-Rebreather 15 03/06/23 12:00 03/06/23 12:00 03/06/23 12:00 0
[2023-03-06 13:30] LABS: Alanine Aminotransferase 57 U/L (12-78); Albumin Level 4.7 g/dl (3.5-5.0); Albumin/Globulin Ratio 1.7 (1.1-1.8); Alkaline Phosphatase 98 U/L (38-126); Aspartate Amino Transferase 40 U/L (14-36); Bilirubin,Total 0.5 mg/dl (0.2-1.3); Blood Urea Nitrogen 11 mg/dl (7-17); Carbon Dioxide 30 mmol/L (22.0-30.0); Chloride 104 mmol/L (98-107); Creatinine Clearance Estimated 98 mL/min (50-200); Estimated Glomerular Filt Rate 90 ml/min (>60); GFR (African American) 109 ML/MIN (>60); Globulin 2.7 g/dL (1.3-3.2); Glucose 95 mg/dl (74-100); Sodium 141 mmol/L (136-145); Total Protein,Serum 7.4 g/dl (6.3-8.2)
[2023-03-06 13:32] LABS: Basophils # 0.1 K/mm3 (0-0.2); Basophils % 0.7 % (0.1-2.0); Eosinophils # 0.2 K/mm3 (0.0-0.4); Eosinophils % 2.7 % (0.1-12.0); Hematocrit 42.6 % (37.0-47.0); Hemoglobin 15.7 g/dL (12.2-16.2); Lymphocytes # 2.1 K/mm3 (0.7-4.5); Lymphocytes % 25.3 % (10-50); Mean Corpuscular HGB Conc 36.7 g/dL (31.8-35.4); Mean Corpuscular Volume 92.6 fl (81-99); Mean Platelet Volume 9.1 fl (7.4-10.4); Monocytes # 0.5 K/mm3 (0.1-1.0); Neutrophils # 5.3 K/mm3 (1.8-7.8); Neutrophils % 65.2 % (37.0-80.0); Platelet Count 275 K/mm3 (142-424); Red Cell Distribution Width 13.4 % (11.5-17.5); White Blood Count 8.2 K/mm3 (4.8-10.8)
--- NOTE | 2023-03-06 14:24 | EXP.PULM.CON ---
History of Present Illness History of present illness: Ms. Smith is a 47-year-old female current smoker has pneumothorax status post 14 Lithuanian chest tube placement status post improved pneumothorax with removal of the chest tube discharged home call clinic today complaining of worsening chest pain along with chest discomfort and was found to be having a recurrent pneumothorax and was eventually admitted to the hospital for further management. [facility] Disclaimer: The information contained in this section may have been updated after the patient was seen, as this information can be updated by other users. Medical History Allergic rhinitis Chest pain Dyspnea on exertion Fatigue FH: lung cancer HTN (hypertension) Hypoxemia Lung collapse Recurrent pneumonia Recurrent pneumothorax Smoking greater than 30 pack years SOB (shortness of breath) on exertion Tachycardia Tobacco use Surgical History History of cholecystectomy History of hysterectomy Family History Other Family history of COPD (chronic obstructive pulmonary disease) Family history of cancer Family history of myocardial infarction Social History (Updated 03/06/23 @ 12:08 by Lady Mitchell RN) Smoking Status: Former smoker years smoked: 30 smoking status stop date: 03/02/2023 alcohol intake: never substance use type: denies use current occupational status: employed Travel in the last 8 weeks: None Review of Systems Constitutional Constitutional: Reports fatigue and Denies headache(s) Eyes Eyes: Denies itchy eyes and Denies loss of vision ENT Ears, Nose, Mouth, and Throat: Denies headache(s), Denies lip swelling and Denies throat swelling *Cardiovascular Cardiovascular: Reports dyspnea on exertion *Respiratory Respiratory: Denies chest congestion, Denies cough, Reports dyspnea on exertion, Denies excessive phlegm production, Reports pain on inspiration, Reports pain with cough and Denies wheezing *Gastrointestinal Gastrointestinal: Denies abdominal pain, Denies belching and Denies cramping *Musculoskeletal Musculoskeletal: Reports back pain, Reports myalgias and Reports other (No small joint swelling or Pain) *Neurologic Neurologic: Denies headache(s) and Denies loss of vision Psychiatric Psychiatric: Denies homicidal ideation and Denies suicidal ideation Endocrine Endocrine: Reports fatigue and Denies heat intolerance Hematologic/Lymphatic Hematologic/Lymphatic: Denies easy bleeding and Denies lymphadenopathy Allergic/Immunologic Allergic/Immunologic: Denies itchy eyes, Denies lip swelling, Denies throat swelling and Denies wheezing Pulmonology Exam Inpatient Vital signs and Labs for Last 24 Hours: Temp Pulse Resp BP Pulse Ox O2 Del Method O2 Flow Rate 98.3 F 64 16 141/81 H 95 Non-Rebreather 15 03/06/23 12:00 03/06/23 12:00 03/06/23 12:00 03/06/23 12:00 03/06/23 12:37 03/06/23 14:17 03/06/23 14:17 Laboratory Results - last 24 hr 03/06/23 12:12: WBC 8.2, RBC 4.60, Hgb 15.7, Hct 42.6, MCV 92.6, MCH 34.0 H, MCHC 36.7 H, RDW 13.4, Plt Count 275, MPV 9.1, Neut % (Auto) 65.2, Lymph % (Auto) 25.3, [place] % (Auto) 6.0, Eos % (Auto) 2.7, Baso % (Auto) 0.7, Neut # (Auto) 5.3, Lymph # (Auto) 2.1, [place] # (Auto) 0.5, Eos # (Auto) 0.2, Baso # (Auto) 0.1, Sodium 141, Potassium 4.0, Chloride 104, Carbon Dioxide 30, Anion Gap 11.0, BUN 11, Creatinine 0.70, Estimated Creat Clear 98, Estimated GFR 90, Est GFR ( Amer) 109, Glucose 95, Calcium 10.0, Total Bilirubin 0.5, AST 40 H, ALT 57, Alkaline Phosphatase 98, Total Protein 7.4, Albumin 4.7, Globulin 2.7, Albumin/Globulin Ratio 1.7 I & O for Labs for Last 24 Hours: Intake & Output 03/03/23 03/04/23 03/05/23 03/06/23 23:59 23:59 23:59 23:59 Weight 138 lb 2 oz Constitutional: Present mild distress Head: Present normocephalic and atraumatic ENT: Present normal exam, normal oropha
--- NOTE | 2023-03-06 14:35 | PC.NURSE ---
RESP CARE NOTE: Pt placed on 50% Venturi mask, per Dr Dong order.
--- NOTE | 2023-03-06 14:39 | XR_ITS ---
FINAL REPORT CLINICAL HISTORY: Pneumothorax COMPARISON: 03/06/2023 FINDINGS: A single PA view of the chest was obtained. The cardiac and mediastinal silhouettes are within normal limits. There has been interval placement of a right chest tube. There is no change in the right middle lobe airspace disease. There has been significant improvement in the right pneumothorax. There is no effusion. IMPRESSION: Significant improvement in the right pneumothorax. Reviewed, Interpreted and Dictated by Savannah Sheth MD Transcribed by Kalie Murillo Authenticated and [facility]
--- NOTE | 2023-03-06 14:40 | HMH.PROCNOTE ---
[facility] Procedure Note Date: 03/06/23 Time: 14:30 Procedure Note:: Procedure: Right chest tube placement Indication for procedure: Pneumothorax A time out was performed, and the chest x-ray was reviewed, the appropriate side was confirmed and marked. My hands were washed immediately prior to the procedure. I wore a surgical cap, mask with protective eyewear, sterile gown, and sterile gloves throughout the procedure. The patient was prepped and draped in a sterile manner using chlorhexidine scrub after the appropriate level was percussed and confirmed by ultrasound. 1% lidocaine was used to anesthetize the skin, ?subcutaneous tissue, superior aspect of the rib periosteum and parietal pleura.? A finder needle was then introduced at the second intercoastal space mid clavicular anteriorly?to locate the pnemothotax, air was aspirated. A 10-blade scalpel was used to nany the skin at the insertion site. The [id number] needle was then introduced through the skin incision into the pleural space using negative aspiration pressure and the red colorimetric indicator to confirm appropriate positioning of the needle. The thoracentesis catheter was then threaded without difficulty with suctioning air. A post-procedure chest X-ray is pending at the time of this note. The chest tube in a sterile fashion was connected to atrium and suction at ?negative 40 cm water Patient tolerated the procedure well? Estimated blood loss is 2cc.
--- NOTE | 2023-03-06 15:08 | PC.NURSE ---
assisted dr monroy with chest tube placement. verified suction to 40. patient requesting to take off nonrebreather. stated she could use a 50% venti mask, and if that continued to bother her then it could be decreased to a 6l nasal cannula. patient tolerated procedure well. okay for patient to eat.
[2023-03-06 16:00] VITALS: BP 132/88; PULSE 71; RESP 20; TEMP 36.7; O2SAT 96
--- NOTE | 2023-03-06 16:17 | PC.NURSE ---
Right upper chest thoracentesis done today and its suction is set up at 40.
--- NOTE | 2023-03-06 16:25 | PC.NURSE ---
Pt. refused a show and said she had one at home today.
[2023-03-06 17:57] VITALS: PULSE 65; PULSE 81; O2SAT 94
[2023-03-06 20:00] VITALS: BP 114/69; PULSE 63; RESP 16; TEMP 37.2; O2SAT 94
[2023-03-06 22:06] VITALS: PULSE 80; PULSE 86
[2023-03-07] VITALS (12 sets, daily range): BP systolic 118–133; BP diastolic 60–78; PULSE 60–77; RESP 16–20; TEMP 36.4–36.9; O2SAT 94–100; BMI 22.3
--- NOTE | 2023-03-07 07:00 | XR_ITS ---
PROCEDURE INFORMATION: Exam: XR Chest Exam date and time: 03/07/2023 8:38 AM Age: 47 years old Clinical indication: Shortness of breath; Additional info: Pneumothorax, right sided TECHNIQUE: Imaging protocol: Radiologic exam of the chest. Views: 1 view. COMPARISON: CR XR CHEST PORTABLE 03/06/2023 3:04 PM FINDINGS: Tubes, catheters and devices: Again noted is a pigtail catheter overlying the right mid chest.. Lungs: Decreasing opacity in the right base Pleural spaces: No significant pneumothorax identified. Heart/Mediastinum: Stable cardiac silhouette Bones/joints: Unremarkable. IMPRESSION: 1. No significant pneumothorax identified. 2. Again noted is a pigtail catheter overlying the right mid chest..
--- NOTE | 2023-03-07 09:46 | EXP.ACUTE.PN ---
Subjective *Date: 03/07/23 *Time: 17:48 Interval history: Overnight event: -Currently saturating 96%, oxygen weaned to nasal cannula 5 L/min -Remains afebrile -Chest x-ray on 03/07: No significant pneumothorax, pigtail catheter overlying the right mid chest -BAL culture/Gram stain from 03/02/2020: Gram-positive cocci Subjective: Shortness of breath improved. Some chest pain during chest movements and deep inspiration at the site of chest tube insertion Medical Exam Vital signs and Labs for Last 24 Hours: Vital Signs Temp Pulse Pulse Resp BP Pulse Ox O2 Del Method 03/07/23 06:10 75 03/07/23 06:10 75 03/07/23 06:10 97 Nasal Cannula 03/07/23 07:58 98.4 F 68 17 133/64 96 Nasal Cannula 03/07/23 06:53 Room Air 03/07/23 05:00 Room Air 03/07/23 04:00 97.8 F 69 20 118/68 99 Nasal Cannula 03/07/23 03:00 Room Air 03/07/23 02:15 60 03/07/23 02:15 65 03/07/23 01:00 Nasal Cannula 03/06/23 23:00 Venturi Mask 03/07/23 00:00 97.6 F 63 16 126/60 94 L Room Air 03/06/23 22:06 86 03/06/23 22:06 80 03/06/23 21:00 Venturi Mask 03/06/23 20:00 Venturi Mask 03/06/23 20:00 98.9 F 63 16 114/69 94 L Room Air 03/06/23 18:03 Venturi Mask 03/06/23 17:57 65 03/06/23 17:57 81 03/06/23 17:57 94 L Venturi Mask 03/06/23 16:00 98.0 F 71 20 132/88 96 Room Air 03/06/23 16:15 Venturi Mask 03/06/23 14:17 Non-Rebreather 03/06/23 12:37 95 Non-Rebreather 03/06/23 12:00 98.3 F 64 16 141/81 H 100 Non-Rebreather 03/06/23 12:18 Non-Rebreather O2 Flow Rate FiO2 03/07/23 06:10 03/07/23 06:10 03/07/23 06:10 6 03/07/23 07:58 5 03/07/23 06:53 03/07/23 05:00 03/07/23 04:00 6 03/07/23 03:00 03/07/23 02:15 03/07/23 02:15 03/07/23 01:00 03/06/23 23:00 03/07/23 00:00 03/06/23 22:06 03/06/23 22:06 03/06/23 21:00 03/06/23 20:00 03/06/23 20:00 03/06/23 18:03 15 03/06/23 17:57 03/06/23 17:57 03/06/23 17:57 15 50 03/06/23 16:00 03/06/23 16:15 15 03/06/23 14:17 15 03/06/23 12:37 15 03/06/23 12:00 03/06/23 12:18 15 Intake and Output 03/06/23 03/07/23 03/07/23 23:59 07:59 15:59 Intake Total 480 / 480 240 / 240 Output Total 0 / 0 Balance 480 / 130 240 / 240 Intake: Intake, Oral Amount 480 / 480 240 / 240 Output: Output, Urine Amount 0 / 0 Other: Number of Unmeasured Voids 1 Weight 59.239 kg Patient Weight 03/07/23 23:59 Weight 59.239 kg Laboratory Results - last 24 hr 03/06/23 12:12: WBC 8.2, RBC 4.60, Hgb 15.7, Hct 42.6, MCV 92.6, MCH 34.0 H, MCHC 36.7 H, RDW 13.4, Plt Count 275, MPV 9.1, Neut % (Auto) 65.2, Lymph % (Auto) 25.3, [place] % (Auto) 6.0, Eos % (Auto) 2.7, Baso % (Auto) 0.7, Neut # (Auto) 5.3, Lymph # (Auto) 2.1, [place] # (Auto) 0.5, Eos # (Auto) 0.2, Baso # (Auto) 0.1, Sodium 141, Potassium 4.0, Chloride 104, Carbon Dioxide 30, Anion Gap 11.0, BUN 11, Creatinine 0.70, Estimated Creat Clear 98, Estimated GFR 90, Est GFR ( Amer) 109, Glucose 95, Calcium 10.0, Total Bilirubin 0.5, AST 40 H, ALT 57, Alkaline Phosphatase 98, Total Protein 7.4, Albumin 4.7, Globulin 2.7, Albumin/Globulin Ratio 1.7 I & O for Labs for Last 24 Hours: Intake & Output 03/04/23 03/05/23 03/06/23 03/07/23 23:59 23:59 23:59 23:59 Intake Total 480 / 480 240 / 240 Output Total 350 / 350 0 / 0 Balance 130 / 130 240 / 240 Weight 62.652 kg 59.239 kg Head: Present atraumatic and normocephalic Respiratory: Present CTA bilaterally, normal respiratory effort, able to speak in complete sentences and symmetric chest movement Comment:: Right chest tube + Cardiac: Present Reg Rate and Rhythm GI: Present soft and normal bowel sounds Extremities: Present normal inspection and full ROM Skin: Present intact Neuro: Present alert, awake, oriented x 3 and m
--- NOTE | 2023-03-07 14:50 | PC.NURSE ---
courtesy tech round: pt is lying in bed sleeping with family at BS
--- NOTE | 2023-03-07 18:00 | PC.NURSE ---
Patient tolerating 6LNC. Chest tube in place, no crepitus noted. Mild pain noted on inspiration, relieved with prn pain medication. Lung sounds clear. VS stable.
--- NOTE | 2023-03-07 19:50 | PC.NURSE ---
BSSR report from RENE Baird
[2023-03-08] VITALS (9 sets, daily range): BP systolic 123–150; BP diastolic 72–87; PULSE 63–80; RESP 16–18; TEMP 36.3–37.1; O2SAT 97–100; BMI 23.1
--- NOTE | 2023-03-08 06:45 | XR_ITS ---
PROCEDURE INFORMATION: Exam: XR Chest Exam date and time: 03/08/2023 7:30 AM Age: 47 years old Clinical indication: Shortness of breath; Additional info: Pneumothorax- right side TECHNIQUE: Imaging protocol: Radiologic exam of the chest. Views: 1 view. COMPARISON: CR XR CHEST PORTABLE 03/07/2023 8:38 AM FINDINGS: Tubes, catheters and devices: Small bore pigtail catheter again projects right mid thorax. Lungs: Right base pulmonary opacities appear slightly increased. Pleural spaces: Unremarkable. No pleural effusion. No pneumothorax. Heart/Mediastinum: Unremarkable. No cardiomegaly. Bones/joints: Unremarkable. IMPRESSION: 1. No pneumothorax evident. 2. Slightly increased right base pulmonary opacities which may reflect atelectasis. 3. Small bore right chest tube is unchanged.
--- NOTE | 2023-03-08 07:00 | CT_ITS ---
PROCEDURE INFORMATION: Exam: CT Chest Without Contrast; Diagnostic Exam date and time: 03/08/2023 3:46 PM Age: 47 years old Clinical indication: Screening exam; Other screening; Patient HX: Re-evlaution of right spontaneous pneumothorax with chest tube clamped. ; Additional info: Re evlaution of spontanous right pneumothorax TECHNIQUE: Imaging protocol: Diagnostic computed tomography of the chest without contrast. Radiation optimization: All CT scans at this facility use at least one of these dose optimization techniques: automated exposure control; mA and/or kV adjustment per patient size (includes targeted exams where dose is matched to clinical indication); or iterative reconstruction. REPORTING DATA: Count of CT and Cardiac NM exams in prior 12 months: This patient has received 2 known CTs and 0 known cardiac nuclear medicine studies in the 12 months prior to the current study. COMPARISON: CT CHEST WO CON 03/06/2023 11:14 AM FINDINGS: Limitations: The absence of intravenous contrast limits the assessment of vascular structures, lesions and lymphadenopathy. Tubes, catheters and devices: There is a right thoracostomy pigtail catheter in place. Lungs: Improved but persistent collapse of the right upper lobe lower segment. Pleural spaces: Right pneumothorax has essentially resolved. Heart: No cardiomegaly or pericardial effusion. Coronary arteries: No significant coronary artery calcifications. Lymph nodes: Calcified mediastinal and hilar lymph nodes suggest prior granulomatous exposure. Vasculature: Aorta is nonaneurysmal. Bones/joints: No acute osseous abnormality. Soft tissues: Unremarkable. IMPRESSION: 1. Improved but persistent collapse of the right upper lobe lower segment. 2. Right pneumothorax has essentially resolved.
--- NOTE | 2023-03-08 08:18 | HMH.ITSTN ---
went to get patient for CT chest w/o-- nurse was given report this morning and told that chest tube was suppose to be clamped today and pt was under the understanding that tube was going to be clamped prior to CT scan. Nurse called Dr. Dong to ask if we need to clamp tube prior to CT scan. He was called and messaged we are awaiting a response before we scan patient. Nurse to call me when she hears back
--- NOTE | 2023-03-08 09:56 | PC.NURSE ---
per eliana, clamp chest tube. ct at 1600. tube clamped at 0855
--- NOTE | 2023-03-08 10:13 | EXP.ACUTE.PN ---
Subjective *Date: 03/08/23 *Time: 10:13 Interval history: no new SOB , cough ,fever or worsening Chest pain Medical Exam Vital signs and Labs for Last 24 Hours: Vital Signs Temp Pulse Pulse Resp BP Pulse Ox O2 Del Method 03/08/23 06:15 69 03/08/23 06:15 67 03/08/23 06:15 98 Nasal Cannula 03/08/23 07:38 97.3 F L 67 18 144/76 H 100 Nasal Cannula 03/08/23 06:49 Nasal Cannula 03/08/23 04:00 97.8 F 65 17 123/78 97 Room Air 03/08/23 05:00 Nasal Cannula 03/08/23 03:00 Nasal Cannula 03/08/23 01:00 Nasal Cannula 03/08/23 00:00 97.8 F 78 16 128/74 100 Room Air 03/07/23 23:57 77 03/07/23 23:56 72 03/07/23 22:58 Nasal Cannula 03/07/23 21:00 Nasal Cannula 03/07/23 20:00 17 Nasal Cannula 03/07/23 20:00 98.4 F 73 16 124/69 99 Nasal Cannula 03/07/23 19:11 Nasal Cannula 03/07/23 19:10 74 03/07/23 19:10 76 03/07/23 18:53 Room Air 03/07/23 17:05 Nasal Cannula 03/07/23 15:15 Nasal Cannula 03/07/23 15:14 98.3 F 63 18 126/74 100 Nasal Cannula 03/07/23 13:00 Nasal Cannula 03/07/23 11:30 Nasal Cannula 03/07/23 11:25 97.8 F 71 18 130/78 98 Nasal Cannula O2 Flow Rate 03/08/23 06:15 03/08/23 06:15 03/08/23 06:15 6 03/08/23 07:38 6 03/08/23 06:49 6 03/08/23 04:00 03/08/23 05:00 6 03/08/23 03:00 6 03/08/23 01:00 6 03/08/23 00:00 03/07/23 23:57 03/07/23 23:56 03/07/23 22:58 6 03/07/23 21:00 6 03/07/23 20:00 6 03/07/23 20:00 7 03/07/23 19:11 6 03/07/23 19:10 03/07/23 19:10 03/07/23 18:53 03/07/23 17:05 6 03/07/23 15:15 6 03/07/23 15:14 5 03/07/23 13:00 6 03/07/23 11:30 6 03/07/23 11:25 3 Intake and Output 03/07/23 03/08/23 03/08/23 23:59 07:59 15:59 Intake Total 240 / 920 440 / 440 Output Total 100 / 300 300 / 300 0 / 300 Balance 140 / 620 140 / 140 0 / 140 Intake: Intake, Oral Amount 240 / 920 440 / 440 Output: Output, Urine Amount 100 / 300 300 / 300 0 / 300 Other: Number of Voids 1 Number of Unmeasured Voids 1 2 Weight 61.598 kg Patient Weight 03/08/23 23:59 Weight 61.598 kg I & O for Labs for Last 24 Hours: Intake & Output 03/05/23 03/06/23 03/07/23 03/08/23 23:59 23:59 23:59 23:59 Intake Total 480 / 480 720 / 920 440 / 440 Output Total 350 / 350 100 / 300 300 / 300 Balance 130 / 130 620 / 620 140 / 140 Weight 62.652 kg 59.239 kg 61.598 kg Additional Findings:: General: appears comfortable Chest: CTA, right chest tube+, some ronchi on right side CVS: rrr abd: soft, non tender Neuro: AAOx3 Assessment and Plan *Assessment and plan (1) Recurrent pneumothorax: Status: Acute Category: Medical Code(s): J93.9 - Pneumothorax, unspecified (2) Lung collapse: Status: Acute Category: Medical Code(s): J98.19 - Other pulmonary collapse (3) HTN (hypertension): Status: Acute Qualifiers: Hypertension type: unspecified Qualified Code(s): I10 - Essential (primary) hypertension Category: Medical Code(s): I10 - Essential (primary) hypertension (4) Tobacco use: Status: Acute Category: Social Hx Code(s): Z72.0 - Tobacco use Plan 47-year-old female with history of pneumothorax who presented to outpatient pulmonology clinic, complaining of chest pain and shortness of breath, repeat imaging showing recurrence of right-sided pneumothorax admitted for management of pneumothorax. Status post insertion of anterior pigtail catheter on the right. Chest x-ray on 03/07: Showing resolution of pneumothorax. Right-sided pigtail catheter in place. CXR 03/08--> no new Pneumothorax, chest tueb in palce on the right side. right basal atelectasis BAL Gram stain/culture from 03/02: Gram-positive cocci--> flores sensitive Streptococcus mitas -Continue small bore chest tube/p
--- NOTE | 2023-03-08 18:28 | PC.NURSE ---
pt has done well this shift. chest tube removed at 1820. o2 6l nc. pt resting well at this time. no needs or concerns.
[2023-03-09] VITALS: BP 108/78; PULSE 65; RESP 16; TEMP 36.6; O2SAT 95
[2023-03-09 04:00] VITALS: BP 115/71; PULSE 64; RESP 16; TEMP 36.7; O2SAT 96; BMI 23.8
[2023-03-09 06:28] VITALS: PULSE 57; PULSE 60; O2SAT 95
--- NOTE | 2023-03-09 07:00 | XR_ITS ---
FINAL REPORT CLINICAL HISTORY: re eval pneumothorax FINDINGS: TWO VIEW CHEST The heart size is normal. The mediastinum is normal. There is no acute pulmonary density. There is elevation of the right diaphragm. IMPRESSION: No acute cardiopulmonary process. Reviewed, Interpreted and Dictated by Crista Zelaya MD Transcribed by Jessie Thakkar Authenticated and [facility]
[2023-03-09 07:05] LABS: Basophils # 0.1 K/mm3 (0-0.2); Basophils % 1.1 % (0.1-2.0); Eosinophils # 0.4 K/mm3 (0.0-0.4); Hemoglobin 15.7 g/dL (12.2-16.2); Lymphocytes # 2.6 K/mm3 (0.7-4.5); Lymphocytes % 32.3 % (10-50); Mean Corpuscular HGB Conc 32.7 g/dL (31.8-35.4); Mean Corpuscular Hemoglobin 30.7 pg (27.0-31.2); Mean Corpuscular Volume 93.9 fl (81-99); Mean Platelet Volume 8.6 fl (7.4-10.4); Monocytes # 0.5 K/mm3 (0.1-1.0); Monocytes % 6.8 % (1.7-9.3); Neutrophils # 4.3 K/mm3 (1.8-7.8); Neutrophils % 54.8 % (37.0-80.0); Platelet Count 313 K/mm3 (142-424); Red Blood Count 5.11 M/mm3 (4.20-5.40); Red Cell Distribution Width 13.4 % (11.5-17.5); White Blood Count 7.9 K/mm3 (4.8-10.8)
[2023-03-09 07:14] LABS: Alanine Aminotransferase 77 U/L (12-78); Albumin Level 4.6 g/dl (3.5-5.0); Albumin/Globulin Ratio 1.6 (1.1-1.8); Alkaline Phosphatase 95 U/L (38-126); Anion Gap 11.3 mEq/L (5-15); Aspartate Amino Transferase 31 U/L (14-36); Bilirubin,Total 0.3 mg/dl (0.2-1.3); Blood Urea Nitrogen 19 mg/dl (7-17); Calcium 10.1 mg/dl (8.4-10.2); Carbon Dioxide 31 mmol/L (22.0-30.0); Chloride 102 mmol/L (98-107); Creatinine Clearance Estimated 87 mL/min (50-200); Estimated Glomerular Filt Rate 77 ml/min (>60); GFR (African American) 93 ML/MIN (>60); Globulin 2.8 g/dL (1.3-3.2); Glucose 103 mg/dl (74-100); Magnesium 1.9 mg/dl (1.6-2.3); Potassium 4.3 mmoL/L (3.5-5.1); Sodium 140 mmol/L (136-145); Total Protein,Serum 7.4 g/dl (6.3-8.2)
[2023-03-09 08:00] VITALS: BP 145/71; PULSE 72; RESP 18; TEMP 36.8; O2SAT 100
--- NOTE | 2023-03-09 08:28 | EXP.DC.SUM ---
General Admission date:: 03/06/23 Discharge date: 03/09/23 HPI HPI HPI: Ms. Smith is a 47 year old female with a past medical history of cigarette nicotine dependence and hypertension. She was recently had bronchoscopy and transbronchial biopsy of the RML on 03/02 to work up collapse of right middle lobe. needle core biopsies revealed benign alveolated lung parenchyma with no abnormalities and bronchial lavage of the right middle lobe was negative for malignant cells. Subsequently she developed a R sided pneumothorax which improved after a 14 [place] chest tube was placed; the chest tube was removed and she was discharged home. This morning she felt R sided chest discomfort; she was scheduled to have CXR in clinic today to follow up on her pneumothorax and CXR revealed revealed recurrent R sided pneumothorax. Hospital Course Hospital Course Hospital Course: 47-year-old female with history of pneumothorax who presented to outpatient pulmonology clinic, complaining of chest pain and shortness of breath, repeat imaging showing recurrence of right-sided pneumothorax admitted for management of pneumothorax. Status post insertion of anterior pigtail catheter on the right. Chest x-ray on 03/07: Showing resolution of pneumothorax. Right-sided pigtail catheter in place. CXR 03/08--> no new Pneumothorax, chest tueb in palce on the right side. right basal atelectasis BAL Gram stain/culture from 03/02: Gram-positive cocci--> flores sensitive Streptococcus mitas Pneumothorax resolved. Chest tube was removed with repeat imaging showing continued resolution of pneumothorax. Given patient's strep mitis, antibiotics were initiated. Plan to complete empiric course, ceftriaxone and transitioned to cefdinir given penicillin allergy to complete 5 days total of antibiotics. Pain stable. Stable for discharge home. Plan to have follow-up with pulmonology in the coming weeks. Stable on room air. Continue Tessalon or Robitussin for cough as needed. Counseled on warning signs for need to return to hospital including dyspnea, increased chest pain, respiratory distress. Spent 30 minutes in discharge counseling and direct care with patient. Exam Data for Last 24 hours Vital signs and Labs for Last 24 Hours: Temp Pulse Resp BP Pulse Ox O2 Del Method O2 Flow Rate 98.1 F 57 L 16 115/71 95 Nasal Cannula 6 03/09/23 04:00 03/09/23 06:28 03/09/23 04:00 03/09/23 04:00 03/09/23 06:28 03/09/23 06:28 03/09/23 06:28 FiO2 50 03/06/23 17:57 Laboratory Results - last 24 hr 03/09/23 06:06: WBC 7.9, RBC 5.11, Hgb 15.7, Hct 48.0 H, MCV 93.9, MCH 30.7, MCHC 32.7, RDW 13.4, Plt Count 313, MPV 8.6, Neut % (Auto) 54.8, Lymph % (Auto) 32.3, [place] % (Auto) 6.8, Eos % (Auto) 5.0, Baso % (Auto) 1.1, Neut # (Auto) 4.3, Lymph # (Auto) 2.6, [place] # (Auto) 0.5, Eos # (Auto) 0.4, Baso # (Auto) 0.1, Sodium 140, Potassium 4.3, Chloride 102, Carbon Dioxide 31 H, Anion Gap 11.3, BUN 19 H D, Creatinine 0.80, Estimated Creat Clear 87, Estimated GFR 77, Est GFR ( Amer) 93, Glucose 103 H, Calcium 10.1, Magnesium 1.9, Total Bilirubin 0.3, AST 31, ALT 77 D, Alkaline Phosphatase 95, Total Protein 7.4, Albumin 4.6, Globulin 2.8, Albumin/Globulin Ratio 1.6 I & O for Last 24 hours: Intake & Output 03/06/23 03/07/23 03/08/23 03/09/23 23:59 23:59 23:59 23:59 Intake Total 480 / 480 720 / 920 1600 / 1600 Output Total 350 / 350 100 / 300 800 / 800 Balance 130 / 130 620 / 620 800 / 800 Weight 62.652 kg 59.239 kg 61.598 kg 63.185 kg Constitutional Constitutional: no acute distress *Routine HEENT Exam Head: Present normocephalic Eye: Present EOMI and PERRL ENT: Present mucous membranes moist *Routine Neck Exam Neck: Present supple; Absent lymphadenopathy Routine Chest/Breast/Axilla Exam Comments: dressing R chest mid axillary line and right anterior upper chest dressings c/d/i *Routine Respiratory Exam Respiratory: Present CTA bilaterally; Absent rhonchi, wheezes or cr
--- NOTE | 2023-03-09 08:32 | EXP.EVENT.NO ---
12/07/2022: CT chest showing complete resolution of Right Pneumothorax Discussed with pulmonology, Alec to remove chest tube Right anterior chest tube/pigtail catheter was removed on 03/08/2023 at 6:10 pm. Vaseline gauze and tegaderm applied to the site. Pt tolerated the procedure well. Plan: To repeat CXR in the Morning.
[2023-03-09 08:40] VITALS: BMI 23.8
--- NOTE | 2023-03-09 09:23 | PC.NURSE ---
COURTESY TECH NOTE; ROUNDED ON PT 0805, PT DENIED NEED FOR DRINK, ASSISTANCE WITH RESTROOM, AND NEED TO REPOSITION IN BED. CALL LIGHT WITHIN REACH, NO FURTHER REQUESTS AT THIS TIME LAVELL MARTINEZ
[2023-03-09 11:25] VITALS: PULSE 78; PULSE 80
[2023-03-09 11:47] VITALS: BP 125/77; PULSE 69; RESP 18; TEMP 37.1; O2SAT 100
--- NOTE | 2023-03-09 13:10 | HMH.PHAINT1 ---
Pharmacy Intervention Comments: Patient's home discharge medications reviewed with patient and patient's : -Cefdinir, take first dose tomorrow morning (Antibiotic, take with food, take until completion, may cause upset stomach/GI issues) Patient had no further questions at this time. -Arnel Khan, Pharm Student
--- NOTE | 2023-03-10 14:08 | CARE MANAGER ---
Contacted patient related to hospital discharge. She states she picked up her antibiotic and is aware of follow up appointments. Denies questions or concerns. RENE Donovan
== END 2023-03-09 13:57 | disposition home or self-care (01) | DRG 200 ==
LOC: 2ND 10:43
PROVIDERS: Internal Medicine Adolescent Medicine; Admitting Provider Internal Medicine; PCP Family Medicine; Visit Provider Internal Medicine
DX: J93.9 Pneumothorax, unspecified (principal); J98.19 Other pulmonary collapse; I10 Essential (primary) hypertension; Z87.891 Personal history of nicotine dependence
CPT/HCPCS: 32551; 36415; 71045; 71046; 71250; 80053; 83735; 85025; 94640; 94761; J0696; J2405

== ENCOUNTER → 2023-03-12 12:58 | Outpatient (CLI) | payer BC, SELFPAY ==
--- NOTE | 2023-03-12 13:03 | XR_ITS ---
FINAL REPORT CLINICAL HISTORY: Lung bx 03/02/23, pt had collapsed lung, c/o bilat upper chest pain since w SOA. Smoker. Hx chest tubes FINDINGS: TWO VIEW CHEST The heart size is normal. The mediastinum is normal. The lungs are clear. There is no pneumothorax. IMPRESSION: No acute cardiopulmonary process. Reviewed, Interpreted and Dictated by Crista Zelaya MD Transcribed by Jessie Thakkar Authenticated and [facility]
== END ==
PROVIDERS: PCP Family Medicine; Visit Provider Internal Medicine Pulmonary Disease
DX: R06.02 Shortness of breath (principal)
CPT/HCPCS: 71046

== ENCOUNTER → 2023-05-20 14:43 | Outpatient (CLI) | payer BC, SELFPAY | LOC: RT 14:44 | PROVIDERS: Visit Provider Nurse Practitioner | DX: R06.02 Shortness of breath (principal); R07.9 Chest pain, unspecified; R00.0 Tachycardia, unspecified; I10 Essential (primary) hypertension; J93.9 Pneumothorax, unspecified; R61 Generalized hyperhidrosis; R53.83 Other fatigue; Z72.0 Tobacco use | CPT/HCPCS: 93270 ==

== ENCOUNTER → 2023-06-25 10:22 | Outpatient (CLI) | payer BC, SELFPAY ==
--- NOTE | 2023-06-25 10:27 | XR_ITS ---
FINAL REPORT CLINICAL HISTORY: SOB, cough, congestion, productive cough - clear COMPARISON: None FINDINGS: PA and lateral views of the chest are obtained. There is no prior exam for comparison. The cardiac and mediastinal silhouettes are within normal limits. The lungs are clear. There is no pleural effusion, pneumothorax, or acute osseous abnormality. IMPRESSION: No radiographic evidence of acute cardiac or pulmonary disease. Reviewed, Interpreted and Dictated by Savannah Sheth MD Transcribed by Anna Gomez Authenticated and [facility]
== END ==
LOC: RAD 10:23
PROVIDERS: PCP Nurse Practitioner Family; Visit Provider Internal Medicine Pulmonary Disease
DX: R06.02 Shortness of breath (principal); Z72.0 Tobacco use
CPT/HCPCS: 71046

== ENCOUNTER 2024-09-02 13:21 | Outpatient (CLI) | payer OTHER, SELFPAY ==
--- NOTE | 2024-09-02 13:24 | CA_ITS ---
APPROVED REPORT EXAM: Comprehensive 2D, Doppler, and color-flow Echocardiogram X Ray Service Technician: Inga Augustin, ADILSON, RVS Ht: 5 ft 4 in Wt: 136lbs BSA: 1.66 BP: 164/88 mmHg Indications: Pedal edema,Murmur, Smoker, H/o multiple pnemothorax, SoB, CP 2D Dimensions Aortic Root 3.21 cm LA Volume 53.20 mL Left Atrium 2.32 cm LA Volume Index 32.205216 mL/m2 (M/F) 16-34 RVID Base (AP4) 3.13 cm (M/F) 2.5-4.1 EF AP4 55.90 % LVOT 1.98 cm (M/F) 1.5-2.5 GL Strain -20.8 % M-Mode Dimensions RVDd 1.94 cm (0.9-2.6) LVDd 5.00 cm (3.5-5.7) Ao Diam 3.42 cm (2.0-3.7) LVDs 3.44 cm (3.5-5.7) IVSd 0.94 cm (0.6-1.1) PWd 0.97 cm (0.6-1.1) EF (Teich) 58.70% EPSs 0.31 cm FS 31.20% EDV (Teich) 118.20 mL TAPSE 1.90 (<1.7) ESV (Teich) 48.80 mL LV Diastology E Decel Time 208 (160-240 msec) E/A Ratio 0.94 MED E' 10.1 (>= 7 cm/sec) MED A' 11.30 cm/s E'/MED E' Ratio 6.54 (<= 14) LAT E' 12.4 (>= 10 cm/sec) LAT A' 10.10 cm/s E/LAT E' Ratio 5.33 (<= 14) Aortic Valve LVOT Max 128.0 (70-110 cm/s) STEPAN Index 2.22 cm2/m2 LVOT VTI 21.08 cm AoV Peak Marc. 94.0 (50-130 cm/s) AO Mean GR. 1.80 (<5 mmHg) AO VTI 17.6 (18-25 cm) STEPAN (VTI) 3.69 (2.5-4.5 cm2) Mitral Valve MV E Max Marc. 66.0 (40-130 cm/s) MV A Velocity 70.0 (40-130 cm/s) E/A Ratio 0.94 MV Decel. Time 208 (160-240 ms) Tricuspid Valve TR P. Velocity 219.00 cm/s RAP Estimate 10.00 mmHg RVSP 29.10 mmHg Left Ventricle The left ventricle is normal size. The left ventricular systolic function is normal. The left ventricular ejection fraction is within the normal range. LVEF is 55%. There is normal left ventricular wall thickness. There is normal LV segmental wall motion. The left ventricular diastolic function is normal. Right Ventricle The right ventricle is normal size. The right ventricular systolic function is normal. Atria The left atrium size is normal. The right atrium size is normal. There is no Doppler evidence of interatrial shunt. Aortic Valve Aortic valve opens well. There is no aortic valvular stenosis. No aortic regurgitation is present. Mitral Valve The mitral valve is normal in structure. No evidence of mitral valve stenosis. Mild mitral regurgitation. Tricuspid Valve Tricuspid valve is grossly normal in structure and function. Mild tricuspid regurgitation. RVSP is 20-25 mmHg. Pulmonic Valve The pulmonary valve is normal in structure. Trace pulmonic regurgitation. Great Vessels The aortic root is normal in size. The ascending aorta is not well-visualized. IVC is normal in size and collapses >50% with inspiration. Pericardium There is no pericardial effusion. Other Information Study Quality: Fair Conclusion Normal biventricular systolic function. Mild MR, mild TR. Electronically signed by : Anel Franco MD 09/11/2024 20:15:26
== END 2024-09-02 23:59 | disposition home or self-care (01) ==
LOC: RT 13:21
PROVIDERS: PCP Nurse Practitioner Family; Visit Provider Nurse Practitioner Family
DX: I34.0 Nonrheumatic mitral (valve) insufficiency (principal); I36.1 Nonrheumatic tricuspid (valve) insufficiency; R53.83 Other fatigue
CPT/HCPCS: 93306

== ENCOUNTER 2024-11-01 14:06 | Outpatient (CLI) | payer OTHER, SELFPAY ==
--- NOTE | 2024-11-01 14:07 | CT_ITS ---
FINAL REPORT TECHNIQUE: Axial imaging of the chest was obtained without contrast. Reformatted images were also obtained and reviewed.This study was performed with techniques to keep radiation doses as low as reasonably achievable, (ALARA). Individualized dose reduction technique using automated exposure control or adjustment of mA and/or kV according to the patient's size were employed. CLINICAL HISTORY: Nodule f/u COMPARISON: 03/08/2023 FINDINGS: There is no axillary adenopathy. There is no hilar or mediastinal mass or adenopathy. Heart size is normal. There is no pericardial or pleural effusion. Limited images of the upper abdomen demonstrate postoperative changes of cholecystectomy. There is no suspicious pulmonary nodule. There is evidence of old calcified granulomatous disease. IMPRESSION: No acute findings or evidence of suspicious pulmonary nodule. Reviewed, Interpreted and Dictated by Crista Zelaya MD Transcribed by Kaci Montilla Authenticated and [facility]
[2024-11-01 15:05] VITALS: PULSE 81; PULSE 86
[2024-11-01] MEDS: ALBUTEROL 0.083% 2.5 MG/3 ML NEB IH (15:05)
== END 2024-11-01 23:59 | disposition home or self-care (01) ==
LOC: RAD 14:07
PROVIDERS: PCP Nurse Practitioner Family; Visit Provider Internal Medicine Pulmonary Disease
DX: R06.09 Other forms of dyspnea (principal); R91.1 Solitary pulmonary nodule
CPT/HCPCS: 71250; 94060; 94618; 94640; 94726; 94729; J7613